=== PATIENT | male | born 1980 ===

== ENCOUNTER 2024-04-15 19:49 | Emergency (ER) | payer BC ==
[2024-04-15] MEDS: Bupivacaine 0.25% 10 ML SDV INJECT STA (20:12)
[2024-04-15] MEDS: Lidocaine 1% with EPINEPHrine 1:100,000 10 ML MDV INJECT STA (20:13)
[2024-04-15] MEDS ORDERED: Sodium Chloride 0.9% 10 ML Syringe FLUSH PRN (20:32)
[2024-04-15] MEDS ORDERED: Sodium Chloride 0.9% 2.5 ML Syringe FLUSH PRN (20:32)
[2024-04-15] MEDS: Ondansetron 4 MG/2 ML SDV IVPUSH STA ×2 (20:34)
[2024-04-15] MEDS: Sodium Chloride 0.9% 1,000 ML IV STA (20:35)
[2024-04-15] MEDS: Diphtheria,Pertussis(Acell),Tetanus Vaccine 0.5 ML Syringe IM ONE (20:35)
[2024-04-15 20:36] LABS: BASOPHILS ABSOLUTE AUTO 0.07 K/uL (0.00-0.20); BASOPHILS PERCENT AUTO 0.4 % (0.0-1.0); EOSINOPHILS ABSOLUTE AUTO 0.55 K/uL (0.00-0.45); EOSINOPHILS PERCENT AUTO 3.5 % (0.0-6.0); HEMATOCRIT 41.3 % (42.0-52.0); HEMOGLOBIN 13.8 g/dL (14.0-18.0); IMMATURE GRAN ABSOLUTE AUTO 0.08 K/uL (0.00-0.05); IMMATURE GRAN PERCENT AUTO 0.5 % (0.0-0.4); LYMPHOCYTES ABSOLUTE AUTO 6.82 K/uL (1.00-4.80); LYMPHOCYTES PERCENT AUTO 43.3 % (24.0-44.0); MEAN CORPUSCULAR HEMOGLOBIN 30.1 pg (28.0-32.0); MEAN CORPUSCULAR HGB CONC 33.4 g/dL (32.0-36.0); MEAN PLATELET VOLUME 9.5 fL (9.4-12.4); MONOCYTES ABSOLUTE AUTO 1.25 K/uL (0.00-0.80); MONOCYTES PERCENT AUTO 7.9 % (0.0-8.0); NEUTROPHILS ABSOLUTE AUTO 6.97 K/uL (1.80-7.70); NEUTROPHILS PERCENT AUTO 44.4 % (41.0-71.0); PLATELET COUNT,PLT 300 K/uL (150-400); RED BLOOD CELL COUNT 4.59 M/uL (4.52-5.90); WHITE BLOOD CELL COUNT,WBC 15.74 K/uL (3.9-11.3)
[2024-04-15] MEDS: Lidocaine 1% with EPINEPHrine 1:100,000 10 ML MDV ONE (20:41)
[2024-04-15] MEDS: Ondansetron 4 MG/2 ML SDV ONE (20:41)
[2024-04-15 20:46] LABS: A/G RATIO 0.9 (0.9-1.6); ALBUMIN 3.9 g/dL (3.4-5.0); BILIRUBIN TOTAL 0.3 mg/dL (0.2-1.0); CALCIUM 9.1 mg/dL (8.5-10.1); CARBON DIOXIDE,CO2 26.5 mmol/L (21.0-32.0); CREATININE 1.3 mg/dL (0.8-1.3); EST CRCL DRUG DOSING (CG) 85.19 mL/min; POTASSIUM,K 3.2 mmol/L (3.5-5.1); PROTEIN TOTAL,TP 8.2 g/dL (6.4-8.2)
[2024-04-15] MEDS: Metoclopramide 10 MG/2 ML SDV IVPUSH ONE (21:53)
[2024-04-15] MEDS: Acetaminophen 1,000 MG in Premix Bag 1 BAG IV ONE (23:35)
== END 2024-04-16 00:32 ==
LOC: MW.ED 19:49
DX: S06.0X1A Concussion with loss of consciousness of 30 minutes or less, initial encounter (principal); S01.01XA Laceration without foreign body of scalp, initial encounter; I10 Essential (primary) hypertension; Z79.899 Other long term (current) drug therapy; Z23 Encounter for immunization; W00.0XXA Fall on same level due to ice and snow, initial encounter; Y93.89 Activity, other specified
CPT/HCPCS: 12002; 36415; 80053; 85025; 86850; 86900; 86901; 90471; 90715; 96361; 96365; 96375; 99285; J0131; J0665; J2405; J2765; J7030; 99284